=== PATIENT | female | born 1975 | race Caucasian/White ===

== ENCOUNTER 2020-09-22 12:46 | Emergency (ER) | payer OTHER ==
[~2020-09-22] VITALS: Ht 157.5 cm; Wt 90.9 kg
[2020-09-22 13:00] VITALS: TEMP 99.1
[2020-09-22] MEDS ORDERED: TORADOL 10MG TA10 MG PO (15:27)
[2020-09-22 15:56] VITALS: BP 114/86; PULSE 79
== END 2020-09-22 15:58 | disposition home or self-care (01) ==
LOC: COL.ER 12:46
DX: S93.401A Sprain of unspecified ligament of right ankle, initial encounter (principal); W10.8XXA Fall (on) (from) other stairs and steps, initial encounter
CPT/HCPCS: J1885